=== PATIENT | male | born 1990 | race Caucasian/White ===

== ENCOUNTER 2023-04-08 17:05 | Emergency (ER) | payer OTHER ==
[2023-04-08 17:15] VITALS: TEMP 98
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
[2023-04-08] MEDS ORDERED: DIPH,PERTUS(ACELL)TETVAC-LF 0.5 ML VIAL IM ONE (18:12)
--- NOTE | 2023-04-08 18:48 | XR ---
EXAMINATION TYPE: XR knee complete LT DATE OF EXAM: 04/08/2023 6:44 PM INDICATION: Patient age:Male; 32 years old; Reason for study: left knee injury; [facility]. COMPARISON: None. TECHNIQUE: The Left knee(s) was examined in frontal, lateral, and oblique projections. FINDINGS: No evidence of any acute osseous pathology, joint space narrowing, soft tissue swelling, or joint effusion is noted. IMPRESSION: No acute osseous pathology.
[2023-04-08 21:25] VITALS: BP 118/72; PULSE 52; RESP 16
== END 2023-04-08 21:25 | disposition home or self-care (01) ==
LOC: EC 17:05
DX: S00.01XA Abrasion of scalp, initial encounter (principal); M25.562 Pain in left knee; Z23 Encounter for immunization; W22.8XXA Striking against or struck by other objects, initial encounter; Y92.838 Other recreation area as the place of occurrence of the external cause; Y93.11 Activity, swimming
CPT/HCPCS: 90471; 90715; 99284